=== PATIENT | female | born 1965 | race American Indian/Alaskan Native ===

== ENCOUNTER 2017-07-15 14:21 | Outpatient (CLI) | payer BC ==
--- NOTE | 2017-07-16 16:21 | Mammography Report ---
BILATERAL DIGITAL SCREENING MAMMOGRAM with CAD : 07/15/17 14:21:00 CLINICAL: Routine screening.Previous left benign biopsy. COMPARISON:07/11/16 FINDINGS: The breasts are heterogeneously dense, which may obscure small masses.Left inner biopsy clip. No mass, architectural distortion or suspicious calcifications. IMPRESSION: No mammographic evidence of malignancy. BI-RADS CATEGORY: 2 -- Benign RECOMMENDATION: Routine mammographic screening in one year. COMMENT: Patient follow-up letters are generated by our [employer] application.
== END 2017-07-15 14:22 | disposition home or self-care (01) ==
LOC: SPVWC 14:21
PROVIDERS: ATTEND Obstetrics & Gynecology
DX: Z12.31 Encounter for screening mammogram for malignant neoplasm of breast (principal)
CPT/HCPCS: 77067

== ENCOUNTER 2018-07-16 13:21 | Outpatient (CLI) | payer BC ==
--- NOTE | 2018-07-16 14:34 | Mammography Report ---
BILATERAL DIGITAL SCREENING MAMMOGRAM with CAD : 07/16/18 13:21:00 CLINICAL: Routine screening. COMPARISON:07/15/17 FINDINGS: The breasts are heterogeneously dense, which may obscure small masses.A left inner biopsy clip. No mass, architectural distortion or suspicious calcifications. IMPRESSION: No mammographic evidence of malignancy. BI-RADS CATEGORY: 2 -- Benign RECOMMENDATION: Routine mammographic screening in one year. COMMENT: Patient follow-up letters are generated by our [employer] application.
== END 2018-07-16 13:22 | disposition home or self-care (01) ==
LOC: SPVWC 13:21
PROVIDERS: ATTEND Obstetrics & Gynecology
DX: Z12.31 Encounter for screening mammogram for malignant neoplasm of breast (principal)
CPT/HCPCS: 77067

== ENCOUNTER 2020-04-04 09:32 | Outpatient (CLI) | payer BC ==
--- NOTE | 2020-04-04 11:13 | Mammography Report ---
DIGITAL SCREENING MAMMOGRAM WITH CAD, 04/04/2020 CLINICAL INFORMATION / INDICATION: Routine screening mammography. TECHNIQUE: Digital bilateral 2D mammography was obtained in the craniocaudal and mediolateral obliqu e projections. This examination was interpreted with the benefit of Computer-Aided Detection analysis . COMPARISON: 07/16/2018 FINDINGS: Breast Density: The breasts are heterogeneously dense, which may obscure small masses. No dominant mass, suspicious calcifications, or architectural distortion in either breast. Left biopsy changes are again seen. IMPRESSION: No mammographic evidence of malignancy. Follow up recommendation: Routine yearly BI-RADS Category 2: Benign. A "normal" or negative report should not discourage follow up or biopsy of a clinically significant f inding. A written summary of these findings will be mailed to the patient. The patient will be entered into a mammography reporting system which will generate a reminder letter for the patient's next appointmen t at the appropriate interval. The [employer] recommends yearly mammograms starting at age 40 and continuing as l mike as a woman is in good health. Breast MRI is recommended for women with an approximate 20-25% or greater lifetime risk of breast cancer, including women with a strong family history of breast or ova mark cancer or who have been treated for Hodgkin's disease. Signer Name: Kadeem Stock MD Signed: 04/04/2020 11:09 AM Workstation Name: [id number]
== END 2020-04-04 09:33 | disposition home or self-care (01) ==
LOC: SPVWC 09:32
DX: Z12.31 Encounter for screening mammogram for malignant neoplasm of breast (principal)
CPT/HCPCS: 77067

== ENCOUNTER 2021-04-12 15:14 | Outpatient (CLI) | payer BC | END 2021-04-12 15:15 | disposition home or self-care (01) | LOC: SPVWC 15:14 | DX: Z12.31 Encounter for screening mammogram for malignant neoplasm of breast (principal) | CPT/HCPCS: 77067 ==